=== PATIENT | male | born 1970 | race Two or more races ===

== ENCOUNTER 2025-01-04 07:00 | Day surgery (SDC) | payer OTHER ==
[2024-12-30 12:55] VITALS: BP 126/78
[~2025-01-04] VITALS: Ht 175.3 cm; Wt 81.6 kg
[2025-01-04] MEDS ORDERED: CEFAZOLIN SODIUM 1,000 MG VIAL IV ONE (10:15)
[2025-01-04] MEDS ORDERED: LIDOCAINE HCL 1%/EPINEPHRINE 20ML VIAL IJ ONE (10:15)
[2025-01-04] MEDS ORDERED: BUPIVACAINE HCL/PF 0.25% 30ML VIAL InF ONE (10:15)
== END 2025-01-04 16:15 | disposition home or self-care (01) ==
LOC: CIR.AMB 07:00
PROVIDERS: ATTEND Colon & Rectal Surgery
DX: L05.01 Pilonidal cyst with abscess (principal)

== ENCOUNTER → 2025-02-17 | Emergency (ER) | payer OTHER | END | disposition left against medical advice (07) | LOC: ER 13:48 | DX: Z53.21 Procedure and treatment not carried out due to patient leaving prior to being seen by health care provider (principal) ==